=== PATIENT | female | born 1960 | race Caucasian/White ===

== ENCOUNTER 2019-07-21 08:45 | Day surgery (SDC) ==
[2019-07-06 09:01] LABS: URINE SOURCE CLEAN CATCH
[2019-07-06 09:05] LABS: BASO# 0.03 X1000 (0.0-0.2); BASO% 0.4 % (0.0-0.8); EOS% 1.2 % (0.0-10.0); HEMATOCRIT 46.1 % (37.0-47.0); HEMOGLOBIN 15.3 g/dL (12.0-16.0); IMM GRAN# 0.02 X1000 (0.0-0.04); IMM GRAN% 0.2 % (0.0-0.5); LYMPH# 2.24 X1000 (1.2-3.4); LYMPH% 27.5 % (20.5-51.1); MCH 30.1 PG (27-31); MCHC 33.2 g/dL (33-37); MCV 90.7 FL (81-99); MONO# 0.69 X1000 (0.11-0.59); MONO% 8.5 % (1.7-9.3); MPV 9.7 FL (7.4-10.4); NEUT# 5.07 X1000 (1.4-6.5); NEUT% 62.2 % (42.2-75.2); PLT 299 X1000 (130-400); RBC 5.08 XMIL (4.2-5.4); RDW 13.1 % (11.5-14.5); WBC 8.15 X1000 (4.8-10.8)
[2019-07-06 09:07] LABS: BILIRUBIN URINE NEGATIVE (NEGATIVE); BLOOD URINE SMALL (NEGATIVE); COLOR YELLOW; GLUCOSE URINE NEGATIVE (NEGATIVE); KETONE URINE NEGATIVE (NEGATIVE); LEUKOCYTES URINE NEGATIVE (NEGATIVE); NITRITE URINE NEGATIVE (NEGATIVE); PH URINE 5.5; PROTEIN URINE TRACE mg/dL (NEGATIVE); SP GRAVITY URINE 1.027; TURBIDITY URINE CLEAR (CLEAR); UR EPITHELIAL CELLS <10 /HPF (<10); URINE BACTERIA NEGATIVE /HPF; URINE RBC <10 /HPF (<10); URINE WBC <10 /HPF (<10); UROBILINOGEN URINE NORMAL (NORMAL)
[2019-07-06 09:15] LABS: INR 1.03; PROTIME 13.6 Seconds (11.0-16.0)
[2019-07-06 09:16] LABS: PTT 30.2 Seconds (22.3-41.8)
[2019-07-06 09:22] LABS: HEMOGLOBIN A1C 5.5 % (4.8-6.0)
--- NOTE | 2019-07-06 09:23 | EKG Report ---
Test Performed on : 07/06/2019 08:45:28 AM Test Reason : PAT Blood Pressure : / mmHG Vent. Rate : 072 BPM Atrial Rate : 072 BPM P-R Int : 166 ms QRS Dur : 090 ms QT Int : 402 ms P-R-T Axes : 046 031 041 degrees QTc Int : 440 ms Normal sinus rhythm. Normal ECG When compared with ECG of 11-APR-2015 07:21, No significant change was found Confirmed by Grabiel ROSA, Owen ([id number]) on 07/07/2019 8:57:29 AM
[2019-07-06 09:44] LABS: AGAP 13; ALBUMIN 4.4 g/dL (3.5-5.0); BUN 16 mg/dL (8-22); CALCIUM 9.9 mg/dL (8.8-10.2); CHLORIDE 101 mmol/L (98-107); COSMO 286; CREATININE 0.9 mg/dL (0.5-0.9); ESTIMATED GFR > 60; GLUCOSE 102 mg/dL (70-104); POTASSIUM 3.9 mmol/L (3.5-5.1); SODIUM 143 mmol/L (136-145); TCO2 29 mmol/L (25-35)
[~2019-07-21 08:45] MED LIST: DIPRIVAN 1% ONE; FENTANYL ONE; VERSED ONE
[2019-07-21] MEDS ORDERED: LYRICA ONE (09:22)
[2019-07-21] MEDS ORDERED: LR 1,000 ML ONE (09:22)
[2019-07-21] MEDS ORDERED: COLACE ONE (09:22)
[2019-07-21] MEDS ORDERED: CELEBREX ONE (09:22)
[2019-07-21] MEDS ORDERED: PEPCID ONE (09:22)
[2019-07-21] MEDS ORDERED: REGLAN ONE (09:22)
[2019-07-21] MEDS ORDERED: KEFZOL 1 GM/D5W 1 GM/50 ML IVPB ONE (09:26)
[2019-07-21] MEDS ORDERED: VANCOMYCIN ONE (10:05)
[2019-07-21] MEDS ORDERED: MARCAINE 0.25% PF ONE (10:05)
[2019-07-21] MEDS ORDERED: DURAMORPH ONE (10:05)
[2019-07-21] MEDS ORDERED: TORADOL ONE (10:05)
[2019-07-21] MEDS ORDERED: SODIUM CHLORIDE 0.9% ONE (10:06)
[2019-07-21] MEDS ORDERED: EXPAREL 1.3% ONE (10:06)
[2019-07-21] MEDS ORDERED: CYKLOKAPRON 1,000 MG/NS 2,000 MG/200 ML IVPB ONE (10:06)
[2019-07-21] MEDS ORDERED: NEOSPORIN G.U. IRRIGANT ONE (10:06)
[2019-07-21] MEDS ORDERED: DIPRIVAN 1% ONE ×2 (11:03→11:44)
[2019-07-21] MEDS ORDERED: EPHEDRINE ONE (11:05)
[2019-07-21] MEDS ORDERED: OFIRMEV 1000 MG/ISOTONIC SOLN 1,000 MG/100 ML BOTTLE ONE (11:08)
[2019-07-21] MEDS ORDERED: ZOFRAN ONE (11:08)
[2019-07-21] MEDS ORDERED: DECADRON ONE (11:08)
[2019-07-21] MEDS ORDERED: NS 1,000 ML ONE (12:50)
--- NOTE | 2019-07-21 13:01 | Diag Imaging Result Doc PS360 ---
KNEE 1-2 VIEWS-LEFT - 07/21/2019 INDICATION: post op TECHNIQUE: Two views COMPARISON: None FINDINGS: There is a left total knee arthroplasty. Alignment is anatomic. No hardware fracture or loosening. IMPRESSION: No complication. Electronically signed by Raymond Barrientos 07/21/2019 12:59 PM
[2019-07-21] MEDS ORDERED: MORPHINE IV PRN ×3 (13:45)
[2019-07-21] MEDS ORDERED: OXY IR PO PRN (13:45)
[2019-07-21] MEDS ORDERED: ZOFRAN IV PRN (13:45)
[2019-07-21 14:10] LABS: URINE SOURCE CATH
[2019-07-21 14:16] LABS: BILIRUBIN URINE NEGATIVE (NEGATIVE); BLOOD URINE TRACE (NEGATIVE); COLOR YELLOW; GLUCOSE URINE NEGATIVE (NEGATIVE); KETONE URINE NEGATIVE (NEGATIVE); LEUKOCYTES URINE NEGATIVE (NEGATIVE); NITRITE URINE NEGATIVE (NEGATIVE); PROTEIN URINE NEGATIVE (NEGATIVE); SP GRAVITY URINE 1.017; TURBIDITY URINE CLEAR (CLEAR); UROBILINOGEN URINE NORMAL (NORMAL)
[2019-07-21 14:18] LABS: UR EPITHELIAL CELLS <10 /HPF (<10); URINE BACTERIA NEGATIVE /HPF; URINE RBC <10 /HPF (<10); URINE WBC <10 /HPF (<10)
[2019-07-21] MEDS ORDERED: NORFLEX PO PRN (15:44)
[2019-07-21] MEDS ORDERED: ULTRAM PO PRN (15:44)
[2019-07-21] MEDS ORDERED: CYKLOKAPRON 1,000 MG in NS 100 ML IV ONE (16:40)
[2019-07-21] MEDS: TYLENOL PO SCH ×2 (17:47→23:13)
[2019-07-21] MEDS: KEFZOL 1 GM/D5W 1 GM/50 ML IVPB IV SCH (17:47)
[2019-07-21] MEDS: ULTRAM PO SCH ×2 (17:48→23:12)
[2019-07-21] MEDS: NS 1,000 ML IV SCH (18:29)
--- NOTE | 2019-07-21 20:16 | OPERATIVE NOTE ---
PROCEDURE DATE: 07/21/2019 PREOPERATIVE DIAGNOSIS: Degenerative joint disease, left knee. POSTOPERATIVE DIAGNOSIS: Degenerative joint disease, left knee. PROCEDURE PERFORMED: Left total knee replacement. SURGEON: Clarice Aguirre MD. GRAIN BROKER: MOY De La Cruz. Mr. Leung was necessary for proper traction and manipulation of the leg. ANESTHESIA: Spinal as noted. COMPLICATIONS: None. PROCEDURE IN DETAIL: A 58-year-old female presents for a left knee replacement. Risks, benefits, and no guarantees were discussed, and she is willing to proceed. She was taken to the operating room and satisfactory anesthesia obtained. The left leg was prepped and draped in usual sterile fashion. A time-out was taken to confirm operative site, procedure, and patient. The leg was wrapped with an Esmarch, and tourniquet inflated to 300 mmHg. A midline incision was made over the front of the knee followed by a quad tendon sparing arthrotomy. The patella was everted and resurfaced with freehand technique. With the patella subluxed laterally, the knee was flexed. An intramedullary hole made in the distal femur and the distal femoral cutting block secured in 5 degrees of valgus. Distal femoral resection was made and the femur sized to a size 5 DePuy Attune femoral implant. The 4-in-1 block was secured, and the anterior, posterior, and chamfer cuts sequentially made. The PCL was retained for cruciate retaining design. The knee was flexed. A PCL retractor placed behind the tibia to protect the PCL and neurovascular bundle. Tibial cutting block was placed with extramedullary alignment, and tibial resection made. Flexion and extension gaps were noted to be slightly tight in the lateral compartment and a popliteus release was performed with good soft tissue balance. Any osteophytes were debrided from the femur and tibia. Good soft tissue balance was achieved with a 12 mm spacer. The tibia was sized to a size 5 tibial tray. A trial reduction was performed with a 12 mm spacer and a size 5 tibial tray and a size 5 CR femoral component with good range of motion and stability. The patella was sized to a 35 medialized dome patella, and the drill holes placed for the patella and femoral implants. The trial components were removed, and the bony surfaces thoroughly irrigated and dried. Cement with a gram of vancomycin was utilized to cement a size 5 rotating platform tibial base plate a size 5 left CR femoral component, standard width, and a 35 medialized dome patella. While the cement cured, the joint capsule was injected with Exparel and a Hemovac drain placed. Any excess cement was removed with a [place] elevator and osteotome as necessary. A 12 mm polyethylene bearing was inserted, and the knee reduced. Final range of motion was 0 to 130 degrees with midline patellar tracking. The arthrotomy was then copiously irrigated with irrigant. It was then closed over the drain with #1 Vicryl in the arthrotomy, 2-0 Vicryl in the subcutaneous, and Prineo skin closure on the skin edges. Sterile dressings were applied, and tourniquet released with good return of capillary blood flow. The patient was recovered from anesthesia and transferred to the recovery room in stable condition. No intraoperative complications were noted. Instrument count and sponge count were correct at the time of closure. cc: Víctor Aguirre MD
[2019-07-21] MEDS: CELEBREX PO SCH (20:34)
[2019-07-21] MEDS: COLACE PO SCH (20:34)
[2019-07-21] MEDS: PERIDEX MT SCH (20:34)
[2019-07-21] MEDS ORDERED: HYZAAR 100/12.5 MG TAB PO SCH (21:00)
[2019-07-21] MEDS ORDERED: CARDIZEM CD PO SCH (21:00)
--- NOTE | 2019-07-21 21:17 | ORTHOPAEDICS PROGRESS NOTE ---
DATE: 07/21/2019 SUBJECTIVE: Ms. Pringle is seen status post total knee replacement. She is awake and alert at the present time. She is comfortable. OBJECTIVE: She appears to be motor and sensory intact. There is no active bleeding. There are no signs of DVT with good capillary refill distally. DIAGNOSTIC DATA: Postoperative x-ray showed good alignment of the total knee. ASSESSMENT/PLAN: We will plan on mobilizing her and discharging her home when she is independent with transfers. cc: Víctor Aguirre MD
[2019-07-22] MEDS: OXY IR PO PRN ×2 (01:13→08:58)
[2019-07-22] MEDS: ZOFRAN ODT PO PRN ×2 (01:13→10:23)
[2019-07-22] MEDS: KEFZOL 1 GM/D5W 1 GM/50 ML IVPB IV SCH (01:15)
[2019-07-22] MEDS: TYLENOL PO SCH ×2 (05:45→11:15)
[2019-07-22] MEDS: ULTRAM PO SCH ×2 (05:45→11:14)
[2019-07-22] MEDS: NS 1,000 ML IV SCH (05:45)
[2019-07-22 06:50] LABS: HEMATOCRIT 36.2 % (37.0-47.0)
[2019-07-22 07:12] LABS: AGAP 10; BUN 19 mg/dL (8-22); CALCIUM 9.2 mg/dL (8.8-10.2); CHLORIDE 103 mmol/L (98-107); COSMO 283; CREATININE 0.9 mg/dL (0.5-0.9); ESTIMATED GFR > 60; GLUCOSE 150 mg/dL (70-104); POTASSIUM 3.8 mmol/L (3.5-5.1); SODIUM 139 mmol/L (136-145); TCO2 26 mmol/L (25-35)
[2019-07-22 07:54] VITALS: BP 122/68
[2019-07-22] MEDS: CELEBREX PO SCH (08:57)
[2019-07-22] MEDS: COLACE PO SCH (08:59)
[2019-07-22] MEDS: PERIDEX MT SCH (08:59)
[2019-07-22] MEDS ORDERED: PEPCID PO SCH (09:00)
[2019-07-22] MEDS ORDERED: ASPIRIN PO SCH (09:00)
--- NOTE | 2019-07-22 11:58 | ORTHOPAEDICS PROGRESS NOTE ---
DATE: 07/22/2019 SUBJECTIVE DATA: Ms. Ferreira is seen postop day 1 of her left total knee arthroplasty. She reports she is doing well at this time. She denies nausea, vomiting, or any type of upset stomach. She states she is ready to go home. OBJECTIVE DATA: There is good sensation in the left lower extremity. There is good pedal pulses. There is good capillary refill in toes. There is negative Homans sign. Her bandages are clean and dry. Vital signs are stable. LABS: Have been within normal limits. ASSESSMENT: Degenerative joint disease, left knee with left total knee arthroplasty. PLAN: We will plan to send Ms. Ferreira home today with outpatient therapy. We will give her a prescription for [place] 10 for pain as well as doxycycline 100 mg b.i.d. x10 days. Also given a prescription for Phenergan 25 mg in case she gets some nausea. We will place her on aspirin 325 mg for DVT prophylaxis. She will need to follow up in the office in roughly 10 to 14 days for recheck and evaluation. We will check back on her then. Dictated by MOY De La Cruz for Víctor Aguirre MD cc: MOY De La Cruz MD
== END 2019-07-22 11:26 | disposition home or self-care (01) ==
LOC: PAT 08:45 → OPS 08:45 → 4N 08:45 → OPS 07-22 11:26
PROVIDERS: ATTEND Orthopaedic Surgery Adult Reconstructive Orthopaedic Surgery